=== PATIENT | male | born 1980 | race Caucasian/White ===

== ENCOUNTER 2024-06-08 08:41 | Emergency (ER) | payer OTHER, SELFPAY ==
[2024-06-08 08:47] VITALS: BP 139/104; PULSE 61; RESP 16; TEMP 36.6; O2SAT 98
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
[2024-06-08 11:11] VITALS: BP 132/82; PULSE 62; RESP 16; TEMP 36.6; O2SAT 98
== END 2024-06-08 11:10 | disposition home or self-care (01) ==
LOC: ER 11:18
PROVIDERS: Emergency Provider Physician Assistant
DX: S51.011A Laceration without foreign body of right elbow, initial encounter (principal); W18.09XA Striking against other object with subsequent fall, initial encounter; Y99.0 Civilian activity done for income or pay; Z23 Encounter for immunization
CPT/HCPCS: 12001; 90471; 90715; 99284